=== PATIENT | female | born 1970 | race Caucasian/White ===

== ENCOUNTER 2019-02-08 23:22 | Inpatient (IN) | payer MEDICAID ==
[~2019-02-08] VITALS: Ht 170.2 cm; Wt 54.9 kg
--- NOTE | 2019-02-08 23:22 | NUR ---
PT JOSÉ MIGUEL ALS. TAKEN TO BED 10
[2019-02-08 23:27] VITALS: BP 103/67
--- NOTE | 2019-02-08 23:27 | NUR ---
RT AT BEDSIDE
[2019-02-08] MEDS ORDERED: cefTRIAXone 1,000 MG in DEXT 5% MINI-BAG PLUS 50 ML IV ONE (23:30)
[2019-02-08] MEDS ORDERED: NACL 0.9% 1,000 ML IV SCH (23:30)
--- NOTE | 2019-02-08 23:30 | NUR ---
PT [facility] ED [facility] FOR SOB INCREASING OVER LAST DAY. UPON ARRIVAL PT IN OBVIOUS DISTRESS AND APPEARS VERY ANXIOUS. PT IS UNABLE TO VERBALIZE NEEDS BUT ABLE TO GESTURE AND FOLLOW COMMANDS. LUNG SOUNDS ARE CLEAR TO ASCULTATION WITH EQUAL CHEST RISE. ER AT BEDSIDE FOR EVAL.
--- NOTE | 2019-02-08 23:38 | NUR ---
X-Ray at bedside.
--- NOTE | 2019-02-08 23:40 | NUR ---
Procedure explained to patient. #14 FR Urinary catheter inserted utilizing sterile technique. Immediate return of orange urine noted. Catherter removed tip intact. Urine sample collected and sent to lab. Pt tolerated procedure well.
[2019-02-08] MEDS ORDERED: cefTRIAXone 1,000 MG VIAL ONE (23:51)
[2019-02-08 23:57] LABS: BASOPHILS # (AUTO) 0.1 K/uL (0.00-0.22); BASOPHILS % (AUTO) 0.5 % (0.0-2.0); EOSINOPHILS % (AUTO) 0.2 % (0.0-4.0); HEMOGLOBIN 7.9 g/dL (12.0-16.0); LYMPHOCYTES # (AUTO) 2.1 K/uL (2.5-16.5); LYMPHOCYTES % (AUTO) 10.5 % (20.5-51.1); MEAN CORPUSCULAR HEMOGLOBIN 28 pg (27-31); MEAN CORPUSCULAR HGB CONC 29 g/dL (33-37); MEAN CORPUSCULAR VOLUME 94.1 fL (80-94); MONOCYTES # (AUTO) 0.8 K/uL (0.8-1.0); MONOCYTES % (AUTO) 4.2 % (1.7-9.3); NEUTROPHILS % (AUTO) 84.6 % (42.2-75.2); RED BLOOD CELL COUNT(AUTO) 2.86 MIL/uL (4.20-5.40)
[2019-02-09] VITALS (26 sets, daily range): BP systolic 72–116; BP diastolic 51–78
[2019-02-09 00:01] LABS: APPEARANCE,URINE CLOUDY (CLEAR); BILIRUBIN,URINE 1+ (NEGATIVE); BLOOD, URINE 3+ (NEGATIVE); COLOR,URINE YELLOW (YELLOW); LEUKOCYTE ESTERASE ,URINE NEGATIVE (NEGATIVE); NITRITE, URINE NEGATIVE (NEGATIVE); PH,URINE 5.5 (5.0-9.0); UGLUCOSE NEGATIVE (NEGATIVE)
[2019-02-09 00:10] LABS: ANION GAP 19.9 (8-16); CARBON DIOXIDE 18.4 mmol/L (21-32); CREATININE 0.9 mg/dL (0.6-1.3); POTASSIUM 4.3 mmol/L (3.5-5.1)
[2019-02-09 00:17] LABS: ALBUMIN 2.1 g/dL (3.4-5.0); TOTAL BILIRUBIN 0.8 mg/dL (0.0-1.0)
[2019-02-09 00:31] LABS: RED CELL DISTRIBUTION WIDTH 24.1 % (11.6-13.7); WHITE BLOOD COUNT (AUTO) 20.1 K/uL (4.8-10.8)
[2019-02-09 00:32] LABS: PLATELET COUNT (AUTO) 44 K/uL (140-450)
[2019-02-09 00:34] LABS: RBC,URINE 11-20 (MOD) /HPF (0-5); WBC,URINE 0-5 /HPF (0-5)
[2019-02-09 00:35] LABS: URINE AMORPHOUS URATE 4+ /HPF (None Seen)
[2019-02-09] MEDS ORDERED: LORazepam 2 MG/ML VIAL IVP ONE ×2 (00:35→01:40)
[2019-02-09] MEDS ORDERED: NACL 0.9% 1,000 ML IV ONE (00:40)
--- NOTE | 2019-02-09 00:50 | NUR ---
TO CT VIA [facility]
--- NOTE | 2019-02-09 01:08 | NUR ---
PT RETURN FROM CT
--- NOTE | 2019-02-09 01:23 | NUR ---
PT RETURNED FROM CT AND REATTACHED TO ALL MONITORS. NO CHANGES TO VITAL SIGNS.
[2019-02-09] MEDS ORDERED: ZOLPIDEM 5 MG TAB PO PRN (01:55)
[2019-02-09] MEDS ORDERED: ACETAMINOPHEN 325 MG TAB PO PRN (01:55)
[2019-02-09] MEDS ORDERED: DOCUSATE SODIUM 100 MG GELCAP PO PRN (01:55)
[2019-02-09] MEDS ORDERED: LORazepam 2 MG/ML VIAL IM/IVP PRN (01:55)
[2019-02-09] MEDS ORDERED: ONDANSETRON 4 MG/2 ML VIAL IM/IVP PRN (01:55)
[2019-02-09] MEDS ORDERED: HYDROcodone/APAP 5/325 MG 1 TAB TAB PO PRN (01:55)
[2019-02-09 02:25] LABS: BARBITURATE, URINE NEG. ng/ml (NEG <=200); BENZODIAZEPINE, URINE NEG. ng/mL (NEG <=200); CANNABINOID, URINE NEG. ng/mL (NEG <=50); COCAINE, URINE NEG. ng/mL (NEG <=300); OPIATE, URINE NEG. ng/mL (NEG <=2000); PHENCYCLIDINE SCREEN,URINE NEG. ng/mL (NEG <=25)
--- NOTE | 2019-02-09 02:30 | NUR ---
RECEIVED PT FROM ER VIA GURNEY; TRANSFERRED PT TO ICU 2;ST ON MONITOR.PT AWAKE, ORIENTED TO NAME ONLY.ABLE TO FOLLOW SIMPLE COMMANDS.WHEEZING APPRECIATED TO BOTH LUNGS.ON MASK AT 10LPM.LABORED BREATHING NOTED.TACHYPNEIC.BOTH EYES REACTIVE TO LIGHT,BRISK, EQUAL.NPO EXCEPT MEDS.SKIN INTACT.PALE.PT INCONTINENT OF URINE.GENERALIZED WEAKNESS NOTED.DENIES PAIN AT THIS TIME.
--- NOTE | 2019-02-09 02:36 | NUR ---
Patient will be admitted to care of DR QUIROGA. Admited to ICU. Will go to room ICU-02. Belongings list completed. Report to JANY MCKENZIE.
[2019-02-09 02:37] LABS: PHOSPHORUS 4.7 mg/dL (2.5-4.9); THYROID STIMULATING HORMONE 1.59 uIU/mL (0.34-3.74)
[2019-02-09] MEDS: DEXT 5% /NACL 0.9% 1,000 ML IV SCH ×3 (02:57→21:29)
[2019-02-09 03:48] LABS: HEMATOCRIT 23.8 % (36-48); HEMOGLOBIN 7.1 g/dL (12.0-16.0); MEAN CORPUSCULAR HEMOGLOBIN 28 pg (27-31); MEAN CORPUSCULAR HGB CONC 30 g/dL (33-37); MEAN CORPUSCULAR VOLUME 95.2 fL (80-94); RED CELL DISTRIBUTION WIDTH 24.6 % (11.6-13.7)
[2019-02-09] MEDS ORDERED: guaiFENesin 600 MG TABER PO SCH ×2 (04:00→21:00)
[2019-02-09] MEDS ORDERED: methylPREDNISolone SS 40 MG/ML VIAL IVP SCH (04:00)
--- NOTE | 2019-02-09 04:05 | NUR ---
CAITLYN; RT AT BEDSIDE.PT PUT ON BIPAP / RATE 12 FIO2 55%.SATURATING ABOVE 95% AT THIS TIME.
--- NOTE | 2019-02-09 04:11 | NUR ---
pt unable to maintain acceptable oxygen saturations while having labored breathing, placed on bipap per Dr Dickey, tolerating well, HR 115 spo2 98%, will continue to monitor.
[2019-02-09 04:18] LABS: ANION GAP 17.5 (8-16); CARBON DIOXIDE 19.8 mmol/L (21-32); CREATININE 0.9 mg/dL (0.6-1.3); POTASSIUM 4.3 mmol/L (3.5-5.1)
[2019-02-09] MEDS ORDERED: PIPERACILLIN/TAZOBACTAM 3.375 GM VIAL IV ONE (04:20)
[2019-02-09 04:24] LABS: CHOL/HDL RATIO 6.1 (1-4.5)
[2019-02-09 04:50] LABS: PROTHROMBIN TIME 19.7 secs (10.8-13.4)
[2019-02-09] MEDS ORDERED: PIPERACILLIN/TAZOBACTAM 3.375 GM in DEXTROSE 5% 50 ML IV SCH (05:00)
--- NOTE | 2019-02-09 05:00 | NUR ---
PT TO CT DEPT FOR CTA WITH CONTRAST; NO FAMILY NOTED ON FACE SHEET; DR BENITEZ AND DR KOWALSKI SIGNED CONTRAST ADMINISTRATION CONSENT OUT OF MEDICAL NECESSITY.UNKNOWN IF PT IS ALLERGIC TO ANYTHING AT THIS TIME.PT UNABLE TO CONFIRM/DENY ANY ALLERGIES DUE TO ALOC AND NO FAMILY NOTED.
--- NOTE | 2019-02-09 05:50 | NUR ---
PT FROM CT DEPT FOR CTA WITH CONTRAST.CAITLYN RT AT BEDSIDE WITH RN.INFORMED DR BENITEZ THAT CT WAS NOT DONE DUE TO NOT ALL CONTRAST WAS ADMIN; PERIPHERAL IV LEAKING.
[2019-02-09] MEDS ORDERED: ALBUTEROL SULFATE/IPRATROPIU 3 ML SOL IH SCH (06:00)
[2019-02-09 06:01] LABS: PLATELET COUNT (AUTO) 29 K/uL (140-450)
--- NOTE | 2019-02-09 06:22 | NUR ---
DR SOL IN THE UNIT WITH DR BENITEZ AND DR WHALEY; SHOWED CRITICAL RESULT FOR CT ANGIO CHEST TO R/O P E ; NO NEW ORDERS
--- NOTE | 2019-02-09 06:30 | NUR ---
STOOL OB DONE BY DR BENITEZ/DR WHALEY; POSITIVE RESULT.
--- NOTE | 2019-02-09 07:22 | NUR ---
REPORT GIVEN TO MARS CARMICHAEL.PT ASLEEP.ON BIPAP 08/19 RATE 12 FIO2 55%.FLACC 0
--- NOTE | 2019-02-09 07:22 | NUR ---
RECEIVED REPORT FROM MIDDLE SCHOOL FRENCH TEACHER RN. PT RESTING IN BED. RESPONSE TO STIMULI. ST ON MONITOR. MAP>65, SPO2 99%PUPILS REACTIVE TO LIGHT. SKIN DRY AND WARM TO TOUCH. ON BIPAP FIO2 55%, 12/6, RR12. LUNGS COARSE ON AUSCULTATION. RAC 20 NOTED. INTACT LINE. FLUSHED. D5%NS INFUSING AT 70 ML/HR. LAC 20G. INTACT LINE, SALINE LOCK. FLUSHED. ABDOMEN SOFT, ROUND AND NON-TENDER. ACTIVE BOWEL SOUND. F/C IN PLACE. DRAINING MINIMAL AMOUNT OF CLEAR, YELLOW URINE VIA GRAVITY. SCD IN PLACE. SKIN INTACT. FLACC 0. HOB ELEVATED. BED IN LOW POSITION LOCKED.
[2019-02-09 07:45] LABS: LYMPHOCYTES % (MANUAL) 9 % (20-46); MONOCYTES % (MANUAL) 3 % (5-12)
--- NOTE | 2019-02-09 08:00 | NUR ---
PT EVALUATED BY DR. ARRINGTON AND DR. WHALEY. MADE AWARE OF PT STATUS AND BP. FOLLOW MAP >[address] WHALE[address].
--- NOTE | 2019-02-09 08:06 | NUR ---
PATIENT HAS BEEN SCREENED AND CATEGORIZED HIGH NUTRITION RISK. PATIENT WILL BE SEEN WITHIN 1-2 DAYS OF ADMISSION. 02/09/19-02/10/[address]
[2019-02-09] MEDS: ALBUTEROL SULFATE/IPRATROPIU 3 ML SOL IH PRN ×2 (08:18→11:34)
[2019-02-09] MEDS ORDERED: PROBIOTIC SCREEN 1 EA MISC MC PRN (08:20)
[2019-02-09] MEDS: guaiFENesin 600 MG TABER PO SCH ×2 (08:36→21:00)
[2019-02-09] MEDS: LACTOBACILLUS RHAMNOSUS GG 1 EACH CAP PO SCH (08:36)
--- NOTE | 2019-02-09 08:46 | NUR ---
PT ALERT BUT NOT ORIENTED AT THIS TIME. RE-ORIENTED TO TIME, PLACE AND PERSON. ABLE TO MAKE NEEDS KNOWN. PT STATED SHE DOES NOT HAVE ANY ALLERGIES. STATED SHE HAS PAIN ON HER CHEST. ADMINISTERED PO PAIN MEDICINE AND SCHEDULED MEDS. TOLERATING WELL.
--- NOTE | 2019-02-09 08:49 | NUR ---
US TECH AT THE BEDSIDE.
--- NOTE | 2019-02-09 08:53 | NUR ---
DR. WHALEY MADE AWARE OF PT'S C/O CHEST PAIN AND 0800 EKG.
--- NOTE | 2019-02-09 09:20 | NUR ---
PT EVALUATION DONE BY THERAPIST. PT ABLE TO SIT UP BUT UNABLE TO AMBULATE AT THIS TIME. ASSISTED TO BED.
[2019-02-09] MEDS ORDERED: VANCOMYCIN PER PHARMACY MC PRN (10:00)
--- NOTE | 2019-02-09 10:05 | NUR ---
SPEECH THERAPIST AT BEDSIDE FOR SWALLOWING EVALUATION REMOVED FROM BIPAP TO MASK PLACED ON SUPPLEMENTAL OXYGEN AT 8 LPM VIA OXYMIZER NO EVIDENCE OF SOB NOTED
--- NOTE | 2019-02-09 10:19 | NUR ---
ST EVALUATION COMPLETED.
--- NOTE | 2019-02-09 10:26 | NUR ---
S.T. BEDSIDE SWALLOW EVAL COMPLETED See report for details. Pt presents w/ moderate oral phase dysphagia c/b labial spillage of solid boluses, prolonged mastication with diffuse oral residue B in buccal sulci. Pt also demo'd increased tachypnea w/ P.O. trials. Pt able to self-feed w/ some assistance. Recommend: 1) Advance to pureed diet, thin liquids okay. Straws okay. 2) Crush P.O. meds and mix w/ puree such as applesauce. 3) Advance to mechanical soft ground only if pt's respiratory status improves, not if she remains tachynpneic while taking P.O. 4) Nsg to assist w/ tray set up to promote self feeding. No further tx indicated at this time. DC to nsg care. D/w pt, JANY Weber results/recommendations. Time [id number]
[2019-02-09] MEDS: LORazepam 2 MG/ML VIAL IM/IVP PRN ×2 (10:54→19:25)
[2019-02-09 10:56] LABS: HEMATOCRIT 25.8 % (36-48); HEMOGLOBIN 7.8 g/dL (12.0-16.0); MEAN CORPUSCULAR HEMOGLOBIN 29 pg (27-31); MEAN CORPUSCULAR HGB CONC 30 g/dL (33-37); MEAN CORPUSCULAR VOLUME 95.2 fL (80-94); RED BLOOD CELL COUNT(AUTO) 2.71 MIL/uL (4.20-5.40); RED CELL DISTRIBUTION WIDTH 23.8 % (11.6-13.7); WHITE BLOOD COUNT (AUTO) 14.7 K/uL (4.8-10.8)
[2019-02-09 11:06] LABS: PLATELET COUNT (AUTO) 20 K/uL (140-450)
[2019-02-09 11:30] LABS: LYMPHOCYTES % (MANUAL) 9 % (20-46); MONOCYTES % (MANUAL) 4 % (5-12)
[2019-02-09] MEDS: VANCOMYCIN 500 MG in DEXTROSE 5% 100 ML IV SCH ×2 (11:40→23:28)
[2019-02-09] MEDS: PIPER/TAZO 3.375GM/D5W PREMIX 50 ML IV SCH ×3 (12:51→23:37)
--- NOTE | 2019-02-09 12:55 | NUR ---
PT EVALUATED BY DR. BETANCOURT.
[2019-02-09] MEDS ORDERED: PIPER/TAZO 3.375GM/D5W PREMIX 50 ML IV SCH (13:00)
--- NOTE | 2019-02-09 13:27 | NUR ---
SALES MANAGER AT THE BEDSIDE.
--- NOTE | 2019-02-09 14:28 | NUR ---
02/09/19 RD INITIAL ASSESSMENT COMPLETED PLEASE REFER TO NUTRITION ASSESSMENT UNDER CARE ACTIVITY FOR ESTIMATED NUTRITIONAL NEEDS. 1. CONSIDER REGULAR PUREE DIET WHEN PT IS MEDICALLY STABLE TO ADVANCE DIET 2. IF PO INTAKE <75% CONSIDER ENSURE BID 3. RD TO FOLLOW-UP 2-3 DAYS, HIGH RISK EPI [address]
--- NOTE | 2019-02-09 14:28 | NUR ---
ECHO COMPLETED. NOTIFIED DR. WHALEY AND DR. LEWIS ON CRITICAL ECHO FINDINGS
[2019-02-09] MEDS: MORPHINE SULFATE 2 MG/ML SYR IVP PRN (15:18)
[2019-02-09] MEDS: ALBUTEROL SULFATE/IPRATROPIU 3 ML SOL IH SCH ×2 (15:19→19:30)
--- NOTE | 2019-02-09 15:44 | NUR ---
PT ALERT AND AWAKE. ABLE TO MAKE NEEDS KNOWN. DENIES DIZZINESS, NAUSEA OR VOMITING. V-TACH NOTED ON MONITOR. DR. WHALEY MADE AWARE. PT ALSO STATED MODERATE PAIN. ADMINISTERED MORPHINE PER ORDERED.
--- NOTE | 2019-02-09 17:36 | NUR ---
BIPAP CHECK DONE. PATIENT APPEARS ANXIOUS AT THIS TIME. PRESENTS WITH HIGH RESPIRATORY RATE. RN AT BEDSIDE. WILL CONTINUE TO MONITOR.
[2019-02-09 18:03] LABS: HEMATOCRIT 23.8 % (36-48); HEMOGLOBIN 7.1 g/dL (12.0-16.0); MEAN CORPUSCULAR HEMOGLOBIN 29 pg (27-31); MEAN CORPUSCULAR HGB CONC 30 g/dL (33-37); MEAN CORPUSCULAR VOLUME 95.6 fL (80-94); RED BLOOD CELL COUNT(AUTO) 2.49 MIL/uL (4.20-5.40); RED CELL DISTRIBUTION WIDTH 24.3 % (11.6-13.7); WHITE BLOOD COUNT (AUTO) 23.3 K/uL (4.8-10.8)
[2019-02-09 18:11] LABS: PLATELET COUNT (AUTO) 17 K/uL (140-450)
--- NOTE | 2019-02-09 18:26 | NUR ---
PT CONTINUE ON BIPAP. TACHYPNEIC. SPO2 100%. HOB ELEVATED. TACHYCARDIC. AFEBRILE. CONTINUE ON D5%NS AT 70 ML/HR. IV SITES INTACT. NO CHANGE IN LOC. NO C/O PAIN AT THIS TIME. BED IN LOW POSITION LOCKED. CONTINUE TO MONITOR.
[2019-02-09 18:33] LABS: LYMPHOCYTES % (MANUAL) 10 % (20-46); MONOCYTES % (MANUAL) 3 % (5-12); PROMYELOCYTES % 1 % (0-0)
[2019-02-09] MEDS ORDERED: HYDROcodone/APAP 7.5/325 MG 1 TAB PO PRN (19:00)
--- NOTE | 2019-02-09 19:20 | NUR ---
REPORT GIVEN TO MONUMENT LETTERER RN FOR CONTINUITY OF CARE.
--- NOTE | 2019-02-09 19:30 | NUR ---
PATIENT RESTLESS AND APPEARS AGITATED. TREATMENT HELD AT THIS TIME. WILL CONTINUE TO MONITOR.
--- NOTE | 2019-02-09 19:54 | NUR ---
PATIENT ON OXYMIZER AT 12 L. PATIENT VERY RESTLESS, TACHYPNEIC AND DESATURATING. PULSE OX PROBE AND SITE CHANGED. BREATH SOUNDS- CRACKLES. PLACED PATIENT BACK ON BIPAP. OBTAINED ABG. ABG RESULTS CALLED INTO DR. BENITEZ AND DR. BETANCOURT. RECEIVED ORDERS TO INTUBATE PATIENT. PATIENT INTUBATED BY DR. BENITEZ AND DR. MONTEMAYOR WITH 7.0 ETT AT 21 CM AT THE TEETH LINE. INVASIVE MECHANICAL VENTILATION INITIATED. VENT PLUGGED INTO RED OUTLET. AMBU BAG AT BEDSIDE. AIRWAY SECURE AND PATENT. SUCTIONED SCANT AMOUNTS OF THIN, BLOODY SECRETIONS. SPUTUM SPECIMEN SENT TO LAB. ABG TO BE DRAWN IN ONE HOUR POST INTUBATION. WILL CONTINUE TO MONITOR.
--- NOTE | 2019-02-09 20:00 | NUR ---
RECEIVED PT FROM AM SHIFT, PT IS LOOK ANXIOUS, PT OPEN EYES, OPEN EYES SPONTANEOUSLY,PT LOOK RESTLESS, PT ON BIPAP WITH RATE 55,SPO2 85-88%,BILATERAL LUNGS SOUND CRACKLES,PT TACHYPNEA , MADE AWARE PT CONDITION, PER WILL DO THE INTUBATION. FROM ER AWARE WITH NEW ORDER.PLACED CALL TO ANGELIKA FERNANDO MOTHER TO GET CONSENT ,NO ANSWER YET AND LEFT MESSAGE TO CALL BACK. PT IS COLD T 95.5 COVER PT WITH BEAR HUGGER AND TEMP UP TO 96.0.PT ON IV D5 IN NS AT 70 CC/HR TO PERIPHERAL LINE. PT HAS 20 GAUGE TO RIGHT AC AND NO 20 GAUGE TO LEFT AC. EDEMA NOTED TO BUE/BLE NON PITTING. SKIN INTACT. F/C IN PLACE WITH YELLOW CLEAR URINE.
--- NOTE | 2019-02-09 20:05 | NUR ---
BLOOD TRANSFUSION CRYOPRECIPITATE 5 UNITS (1ST BAG ) RUNNING. TO RIGHT AC TOLERATED WELL.
--- NOTE | 2019-02-09 20:55 | NUR ---
ETT NO 7.0 INSERTED BY AND . BLOOD TRANSFUSION CRYOPRECIPITATE 2ND BAG DONE AND TOLERATED WELL, NO ADVERSE REACTION NOTED.ANGELIKA FERNANDO THE MOTHER AWARE THAT ETT WAS INSERTED FOR EMERGENCY SITUATION FOR PT SAFETY ALSO AWARE BLOOD TRANSFUSION DONE AND NO ADVERSE REACTION.
[2019-02-09] MEDS ORDERED: PROPOFOL 1000 MG/100 ML PREMIX 100 ML IV ONE (20:59)
--- NOTE | 2019-02-09 21:10 | NUR ---
DRY WEIGHT 55 KG WILL START PROPOFOL DRIPS TITRATE TO KEPT RASS-3
[2019-02-09] MEDS: PROPOFOL 1000 MG/100 ML PREMIX 100 ML IV PRN (21:13)
--- NOTE | 2019-02-09 21:13 | NUR ---
PROPOFOL DRIPS STARTED FOR SEDATION PER MD ORDER. CONTINUE TO MONITOR CLOSELY.
[2019-02-09] MEDS: methylPREDNISolone SS 40 MG/ML VIAL IVP SCH (21:24)
[2019-02-09] MEDS ORDERED: NOREPINEPHRINE 4 MG/4 ML VIAL IV ONE (21:34)
[2019-02-09] MEDS: NOREPINEPHRINE 4 MG in DEXTROSE 5% 250 ML IV PRN (21:45)
--- NOTE | 2019-02-09 21:45 | NUR ---
PT STARTED WITH LEVOPHED AT 4MCG/MIN D/T LOW BP 72/53
--- NOTE | 2019-02-09 23:00 | NUR ---
CENTRAL LINE TO RIGHT FEMORAL TRIPLE LUMENS DONE BY . AND PER AND NO NEED X-RAY TO BE DONE AT THIS TIME AND OKAY TO USE THE LINE. LINE HAVE SMALL OOZING BLOOD, THE SAND BAG APPLY TO GIVE PRESSURE TO AREA AND CONT TO MONITOR .PT IS CONTINUE ON SEDATION.
[2019-02-09] MEDS ORDERED: NOREPINEPHRINE 16 MG in DEXTROSE 5% 250 ML IV PRN (23:30)
--- NOTE | 2019-02-09 23:30 | NUR ---
ABG DRAWN. RESULTS GIVEN TO DR. BENITEZ. NO CHANGES TO BE MADE AT THIS TIME. NEW ORDER TO DRAW FOLLOW UP ABG TOMORROW 0600.
--- NOTE | 2019-02-09 23:30 | NUR ---
INSERT OGT ORDER AND NOTED DARK COLOR DRAINAGE CONNECT TO INTERMITTET SUCTION PER . PLCEMENT OF OGT WAS CONFIRM BY X-RAY.
[2019-02-10] VITALS (98 sets, daily range): BP systolic 80–167; BP diastolic 43–79
--- NOTE | 2019-02-10 00:15 | NUR ---
START TRANSFUSION OF 1 BAG PRC. T 97.1 TO RIGHT AC. PT CONT ON SEDATION.
[2019-02-10] MEDS: PROPOFOL 1000 MG/100 ML PREMIX 100 ML IV PRN ×3 (03:02→16:31)
--- NOTE | 2019-02-10 03:30 | NUR ---
VENT CHECK DONE. PULSE OX SAT 100%. FIO2 TITRATED TO 50%. WILL CONTINUE TO MONITOR.
--- NOTE | 2019-02-10 03:40 | NUR ---
RBC 1 BAG TRANSFUSION DONE STILL WAITING FOR PLASMA PHERESIS Addendum: 02/10/19 at 0515 by Simran Quintanilla RN CLARIFICATION PLASMA PHARESIS IS PLATELET PHARESIS
--- NOTE | 2019-02-10 04:40 | NUR ---
PLATELET PHARESIS STARTED RUNNING
[2019-02-10] MEDS: PIPER/TAZO 3.375GM/D5W PREMIX 50 ML IV SCH ×4 (05:04→23:09)
--- NOTE | 2019-02-10 05:45 | NUR ---
THE PLATELET TRANFUSION DONE, NO ADVERSE REACTION NOTED. NO FEVER, NO RASHES NOTED.
--- NOTE | 2019-02-10 06:00 | NUR ---
DR.POTLURI RECIO RESIDENT COME TO SEE PT, UP DATE PT CONDITION AND MADE AWARE THE FEMORAL SITE STILL OOZING BLOOD MINIMAL AMOUNT. ICE BAG AND SAND BAG WAS APPLIED TO AREA.MD ALSO AWARE THE BLOOD TRANSFUSION OF PLATELET DONE AT 5:45 PER MD MAY DRAW BLOOD AFTER 1 HOUR,RAY ATTORNEY GENERAL MADE AWARE. AM CARE WAS GIVEN. CONT TO MONITOR PT CLOSELY.
--- NOTE | 2019-02-10 06:20 | NUR ---
LEVOPHED INCREASE TO 8 MCG/MIN=30 ML/HR D/T HYPOTENSION BP 80/46,HR 108,R 27,SPO2 98%.CONTINUE TO MONITOR CLOSELY.
[2019-02-10] MEDS: ALBUTEROL SULFATE/IPRATROPIU 3 ML SOL IH SCH ×3 (06:55→19:00)
--- NOTE | 2019-02-10 06:55 | NUR ---
PT SEDATED AND INTUBATED, VENTILATOR WAS SWITCHED OUT APPROX 30 MINS AGO DUE TO MALFUNCTION. PT WAS AMBU BAGGED BY FELLOW RT DURING THE SWITCH. PT WAS TACHYPNIC BUT HER RR HAS COME DOWN SOME. ETT SECURED APPROX 22CM AT THE LIP. BREATH SOUNDS COARSE BILATERALLY. SUCTIONED SMALL AMOUNT OF THIN BLOODY SECRETIONS FROM ETT. VENT PLUGGED INTO RED OUTLET. WHEELS LOCKED.
--- NOTE | 2019-02-10 07:21 | NUR ---
RECEIVED REPORT FROM PROFESSIONAL PROGRAMMER ANALYST RN. PT ON SEDATION. RASS -3. ETT TO VENT AT SETTING FIO2 50%, TV 500 RR 16 PEEP 5. OG-TUBE IN PLACE ATTACHED TO REGULAR SUCTION DRAINING BROWNISH DRAINAGE. SKIN DISCOLORATION NOTED ON NOSE. LUNGS CLEAR ON AUSCULTATION. RAC 20G INTACT, LEVOPHED INFUSING AT 8 MCG/MIN. RIGHT HAND 24G, SALINE LOCK. INTACT LINE. EDEMATOUS BOTH UPPER EXTREMITIES. ABDOMEN SOFT ROUND AND NON-TENDER. ACTIVE BOWEL SOUND. F/C IN PLACE DRAINING CLOUDY YELLOW URINE VIA GRAVITY. EDEMATOUS BOTH LOWER EXTREMITIES. RIGHT FEMORAL TRIPLE LUMEN CATH NOTED IN PLACE. PROPOFOL INFUSING AT 40 MCG/KG/MIN, D5%NS INFUSING AT 70 ML/HR. CLOTS PRESENT AT THE SITE. MINIMAL OOZING NOTED FROM THE SITE. REINFORCED COLD COMPRESS AND SAND BAG PRESSURE AT THIS TIME. KEPT HOB ELEVATED. BED IN LOW POSITION LOCKED. Addendum: 02/10/19 at 1859 by Tia Lucio RN DRY WEIGHT NOTED 55KG.
--- NOTE | 2019-02-10 07:21 | NUR ---
REPORT GIVEN TO MARS CARMICHAEL AM SHIFT, MADE AWARE THAT PT IS NOT STABLE, ETT TO VENT,CENTRAL LINE WAS INSERTED,HYPOTENSION,SEVERE ANEMIC ,BLOOD TRANSFUSIONS WAS DONE AND FEMORAL CENTRAL LINE OOZING BLOOD MD WAS AWARE.PT ON LEVOPHED AT 8 MCG/MIN AND PROPOFOL AT 40 MCG/KG/MIN.
[2019-02-10 08:22] LABS: HEMATOCRIT 26.5 % (36-48); HEMOGLOBIN 8.1 g/dL (12.0-16.0); MEAN CORPUSCULAR HEMOGLOBIN 29 pg (27-31); MEAN CORPUSCULAR HGB CONC 31 g/dL (33-37); MEAN CORPUSCULAR VOLUME 95.1 fL (80-94); RED BLOOD CELL COUNT(AUTO) 2.79 MIL/uL (4.20-5.40); WHITE BLOOD COUNT (AUTO) 21.2 K/uL (4.8-10.8)
--- NOTE | 2019-02-10 08:35 | NUR ---
PT EVALUATED BY DR. BETANCOURT. UPDATED PT CONDITION. ORDERED TO HOLD OG-TUBE MEDS AT THIS TIME.
[2019-02-10 08:36] LABS: ANION GAP 17.2 (8-16); CARBON DIOXIDE 18.9 mmol/L (21-32); CREATININE 1.1 mg/dL (0.6-1.3); POTASSIUM 4.1 mmol/L (3.5-5.1)
[2019-02-10] MEDS: methylPREDNISolone SS 40 MG/ML VIAL IVP SCH ×2 (08:40→20:54)
[2019-02-10 08:42] LABS: MAGNESIUM 2.1 mg/dL (1.8-2.4); PHOSPHORUS 5.4 mg/dL (2.5-4.9)
[2019-02-10 08:45] LABS: PROTHROMBIN TIME 16.3 secs (10.8-13.4)
[2019-02-10 08:50] LABS: CORRECTED WHITE BLOOD COUNT 20.2 K/uL (4.5-11.0)
[2019-02-10 08:51] LABS: LYMPHOCYTES % (MANUAL) 4 % (20-46); MONOCYTES % (MANUAL) 3 % (5-12); PLATELET COUNT (AUTO) 67 K/uL (140-450)
[2019-02-10] MEDS: LACTOBACILLUS RHAMNOSUS GG 1 EACH CAP PO SCH (09:00)
[2019-02-10] MEDS: guaiFENesin 600 MG TABER PO SCH ×2 (09:00→20:54)
[2019-02-10] MEDS ORDERED: PANTOPRAZOLE 40 MG INJ VIAL IVP SCH (09:23)
[2019-02-10] MEDS: NOREPINEPHRINE 4 MG in DEXTROSE 5% 250 ML IV PRN (09:39)
--- NOTE | 2019-02-10 10:10 | NUR ---
MOTHER AT THE BEDSIDE. UPDATED PT CONDITION.
[2019-02-10] MEDS: VANCOMYCIN 500 MG in DEXTROSE 5% 100 ML IV SCH (10:20)
--- NOTE | 2019-02-10 10:24 | NUR ---
LAB MADE AWARE OF VANCO TROUGH. VANCOMYCIN WILL BE ADMINISTERED AFTER OBTAINING VANCO TROUGH RESULT. PHARMACY AWARE.
--- NOTE | 2019-02-10 12:44 | NUR ---
STILL MINIMAL LEAK NOTED AT THE FEMORAL SITE. REPOSITIONED. DRESSING CHANGED. CONTINUED COLD COMPRESS AND AND APPLIED SAND BAG AT THE SITE. CONTINUE ON SEDATION. RASS -3. NO SOB OR ACUTE DISTRESS NOTED. CONTINUE TO MONITOR.
[2019-02-10] MEDS: VANCOMYCIN 750 MG in DEXTROSE 5% 250 ML IV SCH (12:49)
[2019-02-10] MEDS: MORPHINE SULFATE 2 MG/ML SYR IVP PRN (14:40)
--- NOTE | 2019-02-10 15:35 | NUR ---
PT NOTED WITH BLOOD TINGED SECRETION DURING SUCTION. MINIMAL LEAKAGE STILL NOTED AT THE RIGHT FEMORAL LINE SITE. REINFORCED COLD COMPRESS AND PRESSURE WITH SAND BAG. DR. WHALEY MADE AWARE. PT EVALUATED BY DR. WHALEY.
[2019-02-10] MEDS: DEXT 5% /NACL 0.9% 1,000 ML IV SCH (16:12)
--- NOTE | 2019-02-10 16:13 | NUR ---
RD RECOMMENDATIONS: PLEASE REFER TO NUTRITION ASSESSMENT UNDER CARE ACTIVITY FOR ESTIMATED NUTRITIONAL NEEDS. 1.IF/WHEN MEDICALLY IS STABLE TO RECEIVE ENTERAL NUTRITION CONSIDER VITAL 1.2 AF AT 65 ML/HR WITH FREE WATER FLUSH OF 100 ML Q4H. START AT 20 ML/HR AND INCREASE BY 20 ML Q6H. -THIS WILL PROVIDE 1872 KCAL AND 117 GM OF PROTEIN MEETING 100% OF KCAL AND PROTEIN GOALS. 2. IF PATIENT IS ABLE TO TOLERATE A PO DIET CONSIDER A PUREE DIET PER SWALLOW EVALUATION EPI [address]
--- NOTE | 2019-02-10 16:15 | NUR ---
DR. WHALEY MADE AWARE ABOUT INCREASING HEART RATE AND RESPIRATORY RATE. SAID WILL DISCONTINUE LEVOPHED AND START LINO-SYNEPHRINE. WILL CARRYOUT ORDER.
[2019-02-10] MEDS: PHENYLEPHRINE 10 MG in NACL 0.9% 250 ML IV PRN ×2 (16:59→19:34)
[2019-02-10] MEDS ORDERED: NACL 0.9% 1,000 ML IV SCH (17:00)
[2019-02-10 17:04] LABS: T4 (THYROXINE) 6.3 ug/dL (4.5 - 12.0)
[2019-02-10 17:11] LABS: TRANSFERRIN 172 mg/dL (200 - 370)
[2019-02-10 17:12] LABS: LACTATE DEHYDROGENASE 1708 IU/L (0-214)
[2019-02-10 18:28] LABS: BASOPHILS % (AUTO) 0.1 % (0.0-2.0); HEMATOCRIT 24.1 % (36-48); HEMOGLOBIN 7.3 g/dL (12.0-16.0); LYMPHOCYTES # (AUTO) 1.8 K/uL (2.5-16.5); LYMPHOCYTES % (AUTO) 7.8 % (20.5-51.1); MEAN CORPUSCULAR HEMOGLOBIN 29 pg (27-31); MEAN CORPUSCULAR HGB CONC 30 g/dL (33-37); MEAN CORPUSCULAR VOLUME 97.4 fL (80-94); MONOCYTES # (AUTO) 1.5 K/uL (0.8-1.0); MONOCYTES % (AUTO) 6.4 % (1.7-9.3); NEUTROPHILS # (AUTO) 20.1 K/uL (1.8-7.7); NEUTROPHILS % (AUTO) 85.7 % (42.2-75.2); PLATELET COUNT (AUTO) 30 K/uL (140-450); RED BLOOD CELL COUNT(AUTO) 2.47 MIL/uL (4.20-5.40); RED CELL DISTRIBUTION WIDTH 21.8 % (11.6-13.7); WHITE BLOOD COUNT (AUTO) 23.5 K/uL (4.8-10.8)
--- NOTE | 2019-02-10 18:45 | NUR ---
DR. BENITEZ MADE AWARE ABOUT PT STATUS AND URINE OUTPUT.
--- NOTE | 2019-02-10 19:10 | NUR ---
[facility] OF A/C: RR 16, TIDAL VOLUME 500, PEEP 5, FIO2 50%. ALARMS ARE ON & AUDIBLE. VENT CONNECTED TO RED PLUG OUTLET. AMBU BAG AT HEAD SIDE OF PT BED. PT IS TACHYPNEA AND ALSO TACHYCARDIC, DID NOT ADMINISTER HHNTX AT TIME BECAUSE OF VITALS, INFORMED NURSES OF THIS. PT LUNG SOUNDS SOUND CLEAR/DIM. RED BLOOD TINGED SECRETIONS ARE BEING SUCTIONED. WILL CONTINUE TO MONITOR THE PT.
--- NOTE | 2019-02-10 19:25 | NUR ---
REPORT GIVEN TO SCHOOL SERVICES OFFICER RN FOR CONTINUITY OF CARE.
--- NOTE | 2019-02-10 19:30 | NUR ---
RECEIVED REPORT FROM MORNING RN, MARS, FOR CONTINUITY OF CARE. AFEBRILE. FLACC 0. RASS -3. PT SEDATED WITH PROPOFOL DRIP. RECEIVED PT WITH PROPOFOL RUNNING AT 40MCG/KG/MIN. DRY WT [address] S1+S2 HE[address] ON MONITOR WITH INTERMITTENT VTACH. S1+S2 HEARD. PULSES ARE PALPABLE. PT ON NEOSYNEPHRINE DRIP AT 100MCG/MIN. PER REPORT, MAP IS TO BE KEPT AT 65. OGT IN PLACE CONNECTED TO LOW WALL SUCTION. DARK RED OUTPUT NOTED FROM OGT. PLACEMENT VERIFIED. STILL IN PLACE. ABDOMEN ROUND, SOFT AND NONDISTENDED. BS ACTIVE IN ALL QUADRANTS. PT HAS MORRIS CATHETER IN PLACE. DRAINING CLOUDY AND YELLOW URINE. SCD IN PLACE. RECEIVED PT WITH RIGHT FEMORAL CENTRAL LINE, RIGHT AC 20G PERIPHERAL IV, RIGHT HAND 24G, AND LEFT FOOT 20G. ALL LINES ARE PATENT, INTACT, AND ASYMPTOMATIC. PT HAS D5 NS AT 70ML/HR. HOB AT DEGREES. BED AT LOWEST POSSIBLE POSITION. ALL SAFETY PRECAUTIONS ARE IN PLACE. WILL CONTINUE TO MONITOR PT.
--- NOTE | 2019-02-10 20:08 | NUR ---
CALLED RESIDENT DOCTORS, SPOKE WITH DR. BENITEZ. WANTED TO CLARIFY THE NEOSYNEPHRINE DRIP. GOAL IS TO KEEP MAP ABOVE 65.
[2019-02-10] MEDS ORDERED: PHENYLEPHRINE 10 MG in NACL 0.9% 250 ML IV PRN (20:10)
[2019-02-10] MEDS ORDERED: PHENYLEPHRINE 10 MG/ML VIAL ONE (21:24)
[2019-02-10] MEDS: PHENYLEPHRINE 40 MG in NACL 0.9% 250 ML IV PRN (21:30)
--- NOTE | 2019-02-10 22:08 | NUR ---
NO CHANGE IN PT'S CONDITION AT THIS TIME. MAP REMAINS STABLE. PT STILL SEDATED WITH PROPOFOL DRIP. RASS -3. RESPIRATIONS ARE EVEN. TACHYNEIC. PT DOES NOT APPEAR TO BE EXPERIENCING ANY DISCOMFORT AT THIS TIME. ALL SAFETY PRECAUTIONS ARE IN PLACE. [facility] AT 30 DEGREES. WILL CONTINUE TO MONITOR PT.
[2019-02-11] VITALS (24 sets, daily range): BP systolic 64–140; BP diastolic 26–71
[2019-02-11] MEDS ORDERED: VANCOMYCIN 1,000 MG VIAL ONE (00:11)
[2019-02-11] MEDS: PROPOFOL 1000 MG/100 ML PREMIX 100 ML IV PRN (00:30)
[2019-02-11] MEDS: VANCOMYCIN 750 MG in DEXTROSE 5% 250 ML IV SCH (00:33)
--- NOTE | 2019-02-11 00:33 | NUR ---
CALLED LAB TO FOLLOW-UP REGARDING BLOOD PRODUCTS ORDERED FOR PT. NONE OF THEM ARE READY AT THIS TIME.
--- NOTE | 2019-02-11 01:33 | NUR ---
RECEIVED A CALL FROM THE LAB THAT PLATELETS ARE READY FOR PT.
--- NOTE | 2019-02-11 01:38 | NUR ---
PICKED UP PLATELETS IN THE LAB AT THIS TIME. ASKED IF THE OTHER BLOOD PRODUCTS ARE READY, AND CURRENTLY ONLY THE PLATELETS IS THE ONLY ONE READY. PER LAB, THEY WILL CALL WHEN THE OTHERS ARE READY.
--- NOTE | 2019-02-11 03:00 | NUR ---
PLATELETS FINISHED INFUSING AT THIS TIME. STILL MONITORING PT'S BP.
[2019-02-11] MEDS ORDERED: PHENYLEPHRINE 10 MG/ML VIAL ONE (03:30)
[2019-02-11] MEDS: PHENYLEPHRINE 40 MG in NACL 0.9% 250 ML IV PRN (03:40)
--- NOTE | 2019-02-11 03:45 | NUR ---
DR. KOWALSKI CAME IN THE UNIT. INFORMED HIM THAT ONLY PLATELETS WERE INFUSED AT THIS TIME D/T STILL WAITING FOR OTHER BLOOD PRODUCTS TO BE READY TO BE TRANSFUSED.
--- NOTE | 2019-02-11 04:50 | NUR ---
CALLED DR. KOWALSKI TO NOTIFY HIM THAT PT'S BP STILL LOW AT THIS TIME. BP CUFF WAS MOVED AROUND BUT STILL THE SAME READING. PER DR. KOWALSKI, HE WILL DISCUSS WITH DR. BENITEZ. ORDERS TO FOLLOW
--- NOTE | 2019-02-11 04:53 | NUR ---
RECEIVED A CALL FROM DR. BENITEZ TO DISCUSS THE NEXT PRESSOR TO BE ORDERED. PER DR. BENITEZ SHE WILL ORDER PITRESSIN.
[2019-02-11] MEDS ORDERED: VASOPRESSIN 20 UNITS in NACL 0.9% 250 ML IV SCH (04:55)
--- NOTE | 2019-02-11 05:10 | NUR ---
PER DR. BENITEZ, TURN OFF PROPOFOL AT THIS TIME D/T PT'S CONTINUOUSLY DECREASING BP.
[2019-02-11] MEDS ORDERED: VASOPRESSIN 20 UNITS/ML VIAL ONE (05:22)
--- NOTE | 2019-02-11 05:25 | NUR ---
PT HAS DECREASED HR FROM PREVIOUSLY 110S, NOW 70S-80S. DR. BENITEZ AT BEDSIDE AT THIS TIME
--- NOTE | 2019-02-11 05:27 | NUR ---
PT NOTED TO HAVE CONTINUOUSLY DECREASING HEART RATE. CHECKED FOR PULSE AND NON-PALPATED. CODE BLUE CALLED.
[2019-02-11] MEDS ORDERED: EPINEPHrine 1:1000 - 1 MG/ML AMP ONE (06:01)
--- NOTE | 2019-02-11 06:06 | NUR ---
PT AT THIS TIME. RESIDENT DOCTORS AT BEDSIDE STILL. WILL CALL [facility], SB CORONERS AND PT'S NEXT OF KIN.
--- NOTE | 2019-02-11 06:17 | NUR ---
CALLED [employer] OFFICE. INFORMATION GIVEN, WILL WAIT FOR THEM TO CALL BACK.
--- NOTE | 2019-02-11 06:22 | NUR ---
CALLED [facility]. INFORMATION GIVEN. WILL WAIT FOR THEM TO CALL BACK FOR ADDITIONAL DETAILS NEEDED.
--- NOTE | 2019-02-11 07:05 | NUR ---
RECEIVED A CALL FROM [facility], ADDITIONAL INFORMATION WAS GIVEN. PER [facility], OKAY TO RELEASE THE BODY.
--- NOTE | 2019-02-11 07:15 | NUR ---
REPORT GIVEN TO MORNING RN, JOHANNA, INFORMED HER REGARDING WHAT HAPPENED OVERNIGHT. PT'S MOTHER AT BEDSIDE AT THIS TIME. OFFERED HER TO SEE HER DAUGHTER BUT SAID SHE WOULD RATHER NOT. SHE WANTED TO HAVE THE LAST IMAGE OF HER DAUGHTER SHE REMEMBERS
--- NOTE | 2019-02-11 08:15 | NUR ---
THE MOTHER ANGELIKA FERNANDO AT BED SIDE AND GAVE INFORMATION [facility] THEY SAID WILL COME TO FLIGHT MANAGER THE BODY WITH IN 2 HRS.
[2019-02-11] MEDS ORDERED: PANTOPRAZOLE 40 MG INJ VIAL IVP SCH (09:00)
--- NOTE | 2019-02-11 09:10 | NUR ---
THE SECURITY BROUGHT [employer] PERSON TO TAKE THE BODY , THE NAME TAGS CHECK THE RELEASE WAS SIGN. THE BODY LEAVE THE UNIT AT [id number].
[2019-02-13 09:24] LABS: FERRITIN 2493 ng/mL (15 - 150)
== END 2019-02-11 06:06 | disposition expired | DRG 720 ==
LOC: MED 23:22 → MIC 02-09 01:54
PROVIDERS: ADMIT General Practice; ATTEND General Practice
PROC: 5A1935Z Respiratory Ventilation, Less than 24 Consecutive Hours (ICD-10-PCS; 2019-02-09)
PROC: 0BH17EZ Insertion of Endotracheal Airway into Trachea, Via Natural or Artificial Opening (ICD-10-PCS; 2019-02-09)
PROC: 5A09357 Assistance with Respiratory Ventilation, Less than 24 Consecutive Hours, Continuous Positive Airway Pressure (ICD-10-PCS; 2019-02-09)
PROC: 30233R1 Transfusion of Nonautologous Platelets into Peripheral Vein, Percutaneous Approach (ICD-10-PCS; 2019-02-09)
PROC: 30233M1 Transfusion of Nonautologous Plasma Cryoprecipitate into Peripheral Vein, Percutaneous Approach (ICD-10-PCS; 2019-02-10)
PROC: 30233N1 Transfusion of Nonautologous Red Blood Cells into Peripheral Vein, Percutaneous Approach (ICD-10-PCS; 2019-02-10)
PROC: 02HV33Z Insertion of Infusion Device into Superior Vena Cava, Percutaneous Approach (ICD-10-PCS; principal; 2019-02-11)
PROC: B548ZZA Ultrasonography of Superior Vena Cava, Guidance (ICD-10-PCS; 2019-02-11)
DX: A41.9 Sepsis, unspecified organism (principal); D65 Disseminated intravascular coagulation [defibrination syndrome]; I21.A1 Myocardial infarction type 2; J69.0 Pneumonitis due to inhalation of food and vomit; J96.01 Acute respiratory failure with hypoxia; E43 Unspecified severe protein-calorie malnutrition; R65.21 Severe sepsis with septic shock; G93.41 Metabolic encephalopathy; C23 Malignant neoplasm of gallbladder; D64.9 Anemia, unspecified; I46.9 Cardiac arrest, cause unspecified; I27.21 Secondary pulmonary arterial hypertension; Z68.1 Body mass index [BMI] 19.9 or less, adult; I11.0 Hypertensive heart disease with heart failure; I25.10 Atherosclerotic heart disease of native coronary artery without angina pectoris; I50.9 Heart failure, unspecified; Z85.09 Personal history of malignant neoplasm of other digestive organs; Z86.73 Personal history of transient ischemic attack (TIA), and cerebral infarction without residual deficits; Z90.49 Acquired absence of other specified parts of digestive tract; E86.0 Dehydration; I05.9 Rheumatic mitral valve disease, unspecified
CPT/HCPCS: 36415; 36600; 70450; 71045; 71275; 74018; 76604; 76700; 80048; 80053; 80202; 80305; 81001; 82140; 82150; 82607; 82728; 82746; 82803; 82948; 83010; 83036; 83540; 83605; 83625; 83690; 83735; 83880; 84100; 84134; 84436; 84443; 84484; 85025; 85045; 85379; 85384; 85610; 85730; 86886; 86900; 86901; 86920; 87040; 87070; 87081; 87086; 87205; 92610; 93005; 94003; 94640; 94660; 96361; 96365; 97530; 99291; C9113; J0171; J0696; J1642; J2060; J2270; J2370; J2543; J2704; J2920; J3370; J3490; J7030; J7042; J7060; J7620; P9012; P9016; P9035; Q0092; Q9967